=== PATIENT | female | born 1930 | race Caucasian/White ===

== ENCOUNTER 2016-12-08 18:05 | Inpatient (IN) | payer OTHER ==
[~2016-12-08] VITALS: Ht 157.5 cm; Wt 84.2 kg
[~2016-12-08 18:05] MED LIST: ALEVE220 MG PO; AMLODIPINE-BEN1 EAC2 PO; AMLODIPINE-BEN1 EAC3 PO; ASCORBIC ACID500 M3 PO; ASPIR-LOW81 MG PO; ASPIRIN81 M2 PO; AZOR 5/20 MG1 TABLET; AZOR 5/20 MG1 TABLET PO; Azor 10/20 mg PO; CYANOCOBALAM1000 MCG PO; GLUCOPHAGE XR750 MG; GLUCOPHAGE XR750 MG PO; Glucophage XR PO; LASIX20 MG PO; LOPRESSOR50 MG PO; LOTREL 5/201 CAPSULE PO; Lasix PO; Lotrel 5/20 PO; METOPROLOL SUC100 MG PO; OMEPRAZOLE20 MG PO; PRAVACHOL20 MG PO; PRAVACHOL80 MG PO; PRAVASTATIN SOD40 MG PO; Relafen PO; TOPROL XL100 MG PO; VITAMIN B PO; VITAMIN B12-FO1 EACH PO; VITAMIN C500 M1 PO; VITAMIN D1000 INTUN PO; VITAMIN D400 UNI1 PO; VITAMIN D5000 INTUN PO; Zocor PO; celeXA PO
[2016-12-08 23:03] LABS: HEMATOCRIT 38.8 % (36.0-46.0); MCH 29.7 PG (29.0-34.0); MCHC 33.8 G/DL (30.0-36.0); MEAN PLAT.VOLUME 10.1 uM^3 (9.5-12.4); PLATELET COUNT 281 K/uL (156-360); RBC DIS.WIDTH-CV 13.2 % (11.8-14.6); RBC DIS.WIDTH-SD 41.3 % (39-53); RED BLOOD COUNT 4.41 M/uL (3.80-5.20); WHITE BLOOD COUNT 9.7 K/uL (4.1-10.2)
[2016-12-08 23:20] LABS: INTER. NORMALIZED RATIO 1.1; PROTHROMBIN TIME 10.8 (9.2-11.2); PTT 29.3 (25-32)
[2016-12-08 23:29] LABS: TROP-I INTERPRETATION NEGATIVE; TROPONIN-I 0.01 ng/mL (0.0-0.30)
[2016-12-08 23:36] LABS: POTASSIUM ND MEQ/L (3.7-5.4)
[2016-12-08 23:43] LABS: CHLORIDE 106 mEq/L (99-109); SODIUM 143 mEq/L (136-147)
[2016-12-08 23:45] LABS: GLUCOSE 96 mg/dL (70-99)
[2016-12-08 23:46] LABS: ANION GAP 13 MEQ/L (2-14)
[2016-12-08 23:48] LABS: GFR ESTIMATE (CALCULATED) 41 mL/min/
[2016-12-08 23:49] LABS: UREA NITROGEN (BUN) 25 mg/dL (9-23)
[2016-12-09] VITALS (9 sets, daily range): BP systolic 151–189; BP diastolic 50–107
[2016-12-09 00:36] LABS: POTASSIUM 3.9 mEq/L (3.7-5.4)
[2016-12-09] MEDS ORDERED: VITAMIN B-122000 MC1 PO (01:00)
[2016-12-09] MEDS ORDERED: PROAIR HFA8.5 GM IH (01:01)
[2016-12-09] MEDS ORDERED: CLOPIDOGREL75 MG PO (01:01)
[2016-12-09] MEDS ORDERED: SYSTANE GEL EYE10 ML RIGHT EYE (01:02)
[2016-12-09 01:37] LABS: BASE EXCESS 0.6 mEq/L (-3 to +3); CARBOXY HGB 1.6 % (0-5); COMMENTS - BLOOD GASES C+A+; DEVICE NIV; FI02 30 %; METHEMOGLOBIN 1.3 % (0-1.5); MODE SPONT; PCO2 44 mm Hg (35-45); PO2 107 mm Hg (80-100); SITE LR; TOTAL RESP RATE 24 resp/min; pH 7.38 (7.35-7.45)
[2016-12-09 01:38] LABS: PEEP 5 CM/H20; PRES. SUPPORT 10 CM/H2O
[2016-12-09 08:57] LABS: BASE EXCESS 2.8 mEq/L (-3 to +3); BICARBONATE 28.5 mEq/L (22-26); CARBOXY HGB 1.5 % (0-5); METHEMOGLOBIN 0.7 % (0-1.5); PCO2 47 mm Hg (35-45); pH 7.39 (7.35-7.45)
[2016-12-09 08:58] LABS: COMMENTS - BLOOD GASES A+C+; DEVICE NC; O2 FLOW 2 L/MIN; PO2 75 mm Hg (80-100); SITE RR
[2016-12-09 10:34] LABS: ADD MIUA? YES; BILIRUBIN NEGATIVE; BLOOD SMALL; COLOR STRAW ((YELLOW)); GLUCOSE (STRIP) NEGATIVE; KETONES NEGATIVE; LEUKOCYTES TRACE; NITRITE POSITIVE; PROTEIN (STRIP) NEGATIVE; SPECIFIC GRAVITY 1.006 (1.000-1.030); UROBILINOGEN 0.2 MG/DL (0.2-1.0)
[2016-12-09 10:42] LABS: BACTERIA RARE /HPF; EPITHELIAL CELLS RARE /HPF; MUCUS TRACE /LPF; RED BLOOD CELLS 0-5 /HPF (0-5); UCUL ADDED? NO
[2016-12-09 13:54] LABS: METH RESISTANT S AUREUS PCR NEGATIVE (NEGATIVE)
[2016-12-09 13:59] LABS: PROBE CHECK PASS; SPECIMEN PROCESSING CONTROL PASS
[2016-12-10] VITALS (12 sets, daily range): BP systolic 105–156; BP diastolic 37–85
[2016-12-10 10:22] LABS: HEMATOCRIT 35.3 % (36.0-46.0); MCH 29.8 PG (29.0-34.0); MCV 87.6 FL (83-99); MEAN PLAT.VOLUME 10.4 uM^3 (9.5-12.4); PLATELET COUNT 234 K/uL (156-360); RBC DIS.WIDTH-CV 12.9 % (11.8-14.6); RBC DIS.WIDTH-SD 40.7 % (39-53); RED BLOOD COUNT 4.03 M/uL (3.80-5.20); WHITE BLOOD COUNT 6.5 K/uL (4.1-10.2)
[2016-12-10 11:11] LABS: ANION GAP 14 MEQ/L (2-14); CHLORIDE 98 MEQ/L (99-109); GFR ESTIMATE (CALCULATED) 50 mL/min/; POTASSIUM 3.6 MEQ/L (3.7-5.4); SAMPLE HEMOLYSIS CHECK 0; SAMPLE ICTERIC CHECK 0; SAMPLE LIPEMIA CHECK 0; SODIUM 140 MEQ/L (136-147); UREA NITROGEN (BUN) 18 mg/dL (9-23)
[2016-12-10 11:12] LABS: GLUCOSE 161 mg/dL (70-99)
[2016-12-10 11:21] LABS: TROP-I INTERPRETATION NEGATIVE; TROPONIN-I 0.03 ng/mL (0.0-0.30)
[2016-12-11] VITALS (7 sets, daily range): BP systolic 123–163; BP diastolic 44–61
[2016-12-11 05:51] LABS: HEMATOCRIT 36.5 % (36.0-46.0); MCV 88.2 FL (83-99); MEAN PLAT.VOLUME 10.9 uM^3 (9.5-12.4); PLATELET COUNT 234 K/uL (156-360); RBC DIS.WIDTH-CV 13.3 % (11.8-14.6); RBC DIS.WIDTH-SD 42.5 % (39-53); RED BLOOD COUNT 4.14 M/uL (3.80-5.20); WHITE BLOOD COUNT 6.5 K/uL (4.1-10.2)
[2016-12-11 06:10] LABS: ANION GAP 10 MEQ/L (2-14); CHLORIDE 99 MEQ/L (99-109); GFR ESTIMATE (CALCULATED) 41 mL/min/; GLUCOSE 139 mg/dL (70-99); POTASSIUM 3.9 MEQ/L (3.7-5.4); SAMPLE HEMOLYSIS CHECK 0; SAMPLE ICTERIC CHECK 0; SAMPLE LIPEMIA CHECK 0; SODIUM 138 MEQ/L (136-147); UREA NITROGEN (BUN) 25 mg/dL (9-23)
[2016-12-11] MEDS ORDERED: FUROSEMIDE40 MG PO (14:36)
[2016-12-11] MEDS ORDERED: KEFLEX250 MG PO (14:36)
== END 2016-12-11 18:35 | disposition home health service (06) | DRG 189 ==
LOC: EME 18:05 → EDOF 12-09 04:59 → 4WEST 12-09 04:59
PROVIDERS: Emergency Medicine; Hospitalist; Internal Medicine
PROC: 5A09358 Assistance with Respiratory Ventilation, Less than 24 Consecutive Hours, Intermittent Positive Airway Pressure (ICD-10-PCS; principal; 2016-12-09)
DX: J96.01 Acute respiratory failure with hypoxia (principal); I50.33 Acute on chronic diastolic (congestive) heart failure; J18.9 Pneumonia, unspecified organism; N39.0 Urinary tract infection, site not specified; E11.9 Type 2 diabetes mellitus without complications; I27.2 Other secondary pulmonary hypertension; E87.6 Hypokalemia; I35.0 Nonrheumatic aortic (valve) stenosis; I05.0 Rheumatic mitral stenosis; E78.5 Hyperlipidemia, unspecified; I25.10 Atherosclerotic heart disease of native coronary artery without angina pectoris; Z91.041 Radiographic dye allergy status; Z88.6 Allergy status to analgesic agent; Z88.8 Allergy status to other drugs, medicaments and biological substances; H54.42 Blindness, left eye, normal vision right eye; Z95.5 Presence of coronary angioplasty implant and graft; Z87.891 Personal history of nicotine dependence; I11.0 Hypertensive heart disease with heart failure
CPT/HCPCS: 36600; 71010; 80048; 81003; 82803; 83605; 83880; 84484; 84999; 85027; 85610; 85730; 87040; 87641; 93005; 93306; 93970; 94002; 94640; 94640 76; 94799; 97530 GO; 99202; 99281; 99285; J0456; J0696; J1644; J1940; J7050

== ENCOUNTER 2017-04-01 16:02 | Inpatient (IN) | payer OTHER ==
[~2017-04-01] VITALS: Ht 157.5 cm; Wt 98.0 kg
[~2017-04-01 16:02] MED LIST changes: +CLOPIDOGREL75 MG PO; +FUROSEMIDE40 MG PO; +KEFLEX250 MG PO; +PROAIR HFA8.5 GM IH; +SYSTANE GEL EYE10 ML BOTH EYES; +VITAMIN B-122000 MC1 PO
[2017-04-01 16:12] LABS: BASE EXCESS -2.4 mEq/L (-3 to +3); CARBOXY HGB 1.8 % (0-5); COMMENTS - BLOOD GASES A+C+; PCO2 69 mm Hg (35-45); PO2 386 mm Hg (80-100); SITE LR
[2017-04-01 16:13] LABS: DEVICE MASK VENT 840; FI02 60 %; MODE SPONT; PEEP 5 CM/H20; PRES. SUPPORT 10 CM/H2O; TOTAL RESP RATE 28 resp/min
[2017-04-01 16:25] LABS: BASOPHIL COUNT 0.1 K/uL (0-0.1); EOSINOPHIL (%) 0.8 % (0-5); EOSINOPHIL COUNT 0.1 K/uL (0-0.3); HEMATOCRIT 38.9 % (36.0-46.0); IMMATURE GRANULOCYTE (%) 0.7 % (0.0-0.7); IMMATURE GRANULOCYTE COUNT 0.1 K/uL; INSTRUMENT ABS NEUTROPHIL CT 12.5 K/uL; LYMPHOCYTE COUNT 1.7 K/uL (1.0-2.8); MCH 30.2 PG (29.0-34.0); MCHC 32.6 G/DL (30.0-36.0); MCV 92.4 FL (83-99); MEAN PLAT.VOLUME 10.2 uM^3 (9.5-12.4); MONOCYTE (%) 4.1 % (3-12); MONOCYTE COUNT 0.6 K/uL (0-0.8); NEUTROPHIL (%) 83.1 % (45-76); NEUTROPHIL COUNT 12.5 K/uL (1.8-6.4); PLATELET COUNT 300 K/uL (156-360); RBC DIS.WIDTH-CV 12.8 % (11.8-14.6); RBC DIS.WIDTH-SD 43.3 % (39-53); RED BLOOD COUNT 4.21 M/uL (3.80-5.20)
[2017-04-01 16:35] LABS: CHLORIDE 107 mEq/L (99-109); POTASSIUM 4.9 mEq/L (3.7-5.4); SODIUM 141 mEq/L (136-147)
[2017-04-01 16:38] LABS: ANION GAP 11 MEQ/L (2-14)
[2017-04-01 16:40] LABS: GFR ESTIMATE (CALCULATED) 30 mL/min/; GLUCOSE 200 mg/dL (70-99)
[2017-04-01 16:41] LABS: UREA NITROGEN (BUN) 39 mg/dL (9-23)
[2017-04-01 16:47] LABS: TROP-I INTERPRETATION NEGATIVE; TROPONIN-I 0.01 ng/mL (0.0-0.30)
[2017-04-01 16:59] LABS: BASE EXCESS -1.4 mEq/L (-3 to +3); BICARBONATE 26.8 mEq/L (22-26); CARBOXY HGB 1.8 % (0-5); METHEMOGLOBIN 0.9 % (0-1.5)
[2017-04-01 17:00] LABS: COMMENTS - BLOOD GASES A+C+; DEVICE 840 MASK VENT; FI02 50 %; MODE SPONT; PCO2 61 mm Hg (35-45); PEEP 5 CM/H20; PO2 186 mm Hg (80-100); PRES. SUPPORT 12 CM/H2O; SITE LR; TOTAL RESP RATE 21 resp/min; pH 7.25 (7.35-7.45)
[2017-04-01 18:14] LABS: BASE EXCESS 0.3 mEq/L (-3 to +3); BICARBONATE 28.2 mEq/L (22-26); CARBOXY HGB 1.8 % (0-5); METHEMOGLOBIN 1.2 % (0-1.5); PCO2 60 mm Hg (35-45); PO2 153 mm Hg (80-100)
[2017-04-01 18:15] LABS: COMMENTS - BLOOD GASES A+C+; DEVICE HHFNC; FI02 50 %; O2 FLOW 60 L/MIN; SITE LR; TOTAL RESP RATE 28 resp/min; pH 7.28 (7.35-7.45)
[2017-04-01] MEDS ORDERED: FUROSEMIDE40 MG PO (19:23)
[2017-04-01] MEDS ORDERED: VITAMIN B-12500 MC5 SL (19:24)
[2017-04-01] MEDS ORDERED: GABAPENTIN300 MG PO (19:25)
[2017-04-01] MEDS ORDERED: LISINOPRIL20 MG PO (19:25)
[2017-04-01] MEDS ORDERED: VITAMIN D31000 UNIT PO (19:25)
[2017-04-01 21:47] VITALS: BP 207/98
[2017-04-01 22:00] VITALS: BP 207/98
[2017-04-01 23:00] VITALS: BP 186/59
[2017-04-01 23:28] LABS: METH RESISTANT S AUREUS PCR NEGATIVE (NEGATIVE)
[2017-04-01 23:29] LABS: PROBE CHECK PASS; SPECIMEN PROCESSING CONTROL PASS
[2017-04-02] VITALS (16 sets, daily range): BP systolic 125–204; BP diastolic 47–78
[2017-04-02 05:49] LABS: TROP-I INTERPRETATION NEGATIVE; TROPONIN-I 0.06 ng/mL (0.0-0.30)
[2017-04-02 13:01] LABS: TROP-I INTERPRETATION NEGATIVE; TROPONIN-I 0.05 ng/mL (0.0-0.30)
[2017-04-03 04:29] VITALS: BP 131/58
[2017-04-03 06:25] LABS: HEMATOCRIT 30.9 % (36.0-46.0); MCHC 33.7 G/DL (30.0-36.0); MEAN PLAT.VOLUME 10.5 uM^3 (9.5-12.4); PLATELET COUNT 220 K/uL (156-360); RBC DIS.WIDTH-CV 12.7 % (11.8-14.6); RBC DIS.WIDTH-SD 42.4 % (39-53); WHITE BLOOD COUNT 8.9 K/uL (4.1-10.2)
[2017-04-03 06:26] LABS: RED BLOOD COUNT 3.36 M/uL (3.80-5.20)
[2017-04-03 07:10] LABS: ANION GAP 11 MEQ/L (2-14); CHLORIDE 103 MEQ/L (99-109); GFR ESTIMATE (CALCULATED) 38 mL/min/; SAMPLE HEMOLYSIS CHECK 0; SAMPLE ICTERIC CHECK 0; SAMPLE LIPEMIA CHECK 0; SODIUM 142 MEQ/L (136-147); UREA NITROGEN (BUN) 38 mg/dL (9-23)
[2017-04-03 07:11] LABS: GLUCOSE 111 mg/dL (70-99); POTASSIUM 3.9 MEQ/L (3.7-5.4)
[2017-04-03 07:58] VITALS: BP 143/64
[2017-04-03 12:05] VITALS: BP 138/60
[2017-04-03 16:00] VITALS: BP 128/60
[2017-04-03 19:43] VITALS: BP 140/63
[2017-04-03 23:44] VITALS: BP 148/65
[2017-04-04 03:34] VITALS: BP 169/72
[2017-04-04 06:18] LABS: HEMATOCRIT 31.9 % (36.0-46.0); MCH 30.5 PG (29.0-34.0); MCHC 33.2 G/DL (30.0-36.0); MCV 91.9 FL (83-99); MEAN PLAT.VOLUME 10.4 uM^3 (9.5-12.4); PLATELET COUNT 214 K/uL (156-360); RBC DIS.WIDTH-CV 12.7 % (11.8-14.6); RBC DIS.WIDTH-SD 42.5 % (39-53); RED BLOOD COUNT 3.47 M/uL (3.80-5.20); WHITE BLOOD COUNT 6.3 K/uL (4.1-10.2)
[2017-04-04 06:45] LABS: ANION GAP 10 MEQ/L (2-14); CHLORIDE 102 MEQ/L (99-109); GFR ESTIMATE (CALCULATED) 32 mL/min/; GLUCOSE 104 mg/dL (70-99); POTASSIUM 4.2 MEQ/L (3.7-5.4); SAMPLE HEMOLYSIS CHECK 0; SAMPLE ICTERIC CHECK 0; SAMPLE LIPEMIA CHECK 0; SODIUM 141 MEQ/L (136-147); UREA NITROGEN (BUN) 40 mg/dL (9-23)
[2017-04-04 07:34] VITALS: BP 153/67
[2017-04-04 11:11] VITALS: BP 137/65
== END 2017-04-04 14:21 | disposition home health service (06) | DRG 189 ==
LOC: EME 16:02 → EDOF 20:38 → 4WEST 20:38 → 5SOUTH 04-02 21:59
PROVIDERS: Emergency Medicine; Hospitalist
PROC: 5A09357 Assistance with Respiratory Ventilation, Less than 24 Consecutive Hours, Continuous Positive Airway Pressure (ICD-10-PCS; principal; 2017-04-01)
DX: J96.01 Acute respiratory failure with hypoxia (principal); I50.33 Acute on chronic diastolic (congestive) heart failure; E87.2 Acidosis; E11.22 Type 2 diabetes mellitus with diabetic chronic kidney disease; I13.0 Hypertensive heart and chronic kidney disease with heart failure and stage 1 through stage 4 chronic kidney disease, or unspecified chronic kidney disease; I25.10 Atherosclerotic heart disease of native coronary artery without angina pectoris; E78.5 Hyperlipidemia, unspecified; N18.3 Chronic kidney disease, stage 3 (moderate); Z68.39 Body mass index [BMI] 39.0-39.9, adult; Z95.2 Presence of prosthetic heart valve; Z90.49 Acquired absence of other specified parts of digestive tract; Z95.1 Presence of aortocoronary bypass graft; Z87.891 Personal history of nicotine dependence; I08.0 Rheumatic disorders of both mitral and aortic valves; J98.11 Atelectasis; K21.9 Gastro-esophageal reflux disease without esophagitis; Z86.73 Personal history of transient ischemic attack (TIA), and cerebral infarction without residual deficits; Z93.3 Colostomy status; Z80.0 Family history of malignant neoplasm of digestive organs; Z82.49 Family history of ischemic heart disease and other diseases of the circulatory system
CPT/HCPCS: 36415; 36600; 71010; 80048; 80053; 80061; 82043; 82570; 82803; 83036; 83735; 83880; 84484; 85025; 85027; 87641; 93005; 94002; 94640; 94640 76; 94760; 94799; 99202; 99281; 99285; J1644; J1940

== ENCOUNTER 2017-04-10 09:16 | Inpatient (IN) | payer OTHER ==
[2017-04-10] VITALS (9 sets, daily range): BP systolic 102–183; BP diastolic 44–83
[~2017-04-10] VITALS: Ht 160 cm; Wt 88.4 kg
[~2017-04-10 09:16] MED LIST changes: +GABAPENTIN300 MG PO; +LISINOPRIL20 MG PO; +VITAMIN B-12500 MC5 SL; +VITAMIN D31000 UNIT PO
[2017-04-10 09:54] LABS: CREATININE 1.6 mg/dL (0.6-1.3); POTASSIUM 4.9 mEq/L (3.7-5.4)
[2017-04-10 09:57] LABS: HEMATOCRIT 35.7 % (36.0-46.0); MCH 30.4 PG (29.0-34.0); MCHC 32.5 G/DL (30.0-36.0); MCV 93.5 FL (83-99); MEAN PLAT.VOLUME 10.5 uM^3 (9.5-12.4); PLATELET COUNT 303 K/uL (156-360); RBC DIS.WIDTH-CV 12.6 % (11.8-14.6); RBC DIS.WIDTH-SD 43.2 % (39-53); RED BLOOD COUNT 3.82 M/uL (3.80-5.20); WHITE BLOOD COUNT 13.7 K/uL (4.1-10.2)
[2017-04-10 10:09] LABS: BASE EXCESS -1.3 mEq/L (-3 to +3); BICARBONATE 28.3 mEq/L (22-26); CARBOXY HGB 1.9 % (0-5)
[2017-04-10 10:10] LABS: COMMENTS - BLOOD GASES A+C+; DEVICE 840 PB MASK; FI02 60 %; MODE SPONT NIV; PCO2 74 mm Hg (35-45); PEEP 8 CM/H20; PO2 246 mm Hg (80-100); PRES. SUPPORT 12 CM/H2O; SITE RR; TOTAL RESP RATE 24 resp/min; pH 7.19 (7.35-7.45)
[2017-04-10 10:14] LABS: TROP-I INTERPRETATION NEGATIVE; TROPONIN-I < 0.01 ng/mL (0.0-0.30)
[2017-04-10 10:17] LABS: CHLORIDE 103 mEq/L (99-109); POTASSIUM 5.1 mEq/L (3.7-5.4); SODIUM 141 mEq/L (136-147)
[2017-04-10 10:18] LABS: GLUCOSE 138 mg/dL (70-99)
[2017-04-10 10:20] LABS: ANION GAP 12 MEQ/L (2-14)
[2017-04-10 10:22] LABS: GFR ESTIMATE (CALCULATED) 30 mL/min/
[2017-04-10 10:23] LABS: UREA NITROGEN (BUN) 55 mg/dL (9-23)
[2017-04-10 10:25] LABS: CREATINE KINASE 211 IU/L (1-294)
[2017-04-10 12:10] LABS: BASE EXCESS -0.3 mEq/L (-3 to +3); BICARBONATE 27.3 mEq/L (22-26); CARBOXY HGB 1.9 % (0-5); COMMENTS - BLOOD GASES A+C+; DEVICE NC; O2 FLOW 2 L/MIN; PCO2 58 mm Hg (35-45); PO2 68 mm Hg (80-100); SITE RR; TOTAL RESP RATE 28 resp/min; pH 7.28 (7.35-7.45)
[2017-04-10] MEDS ORDERED: VITAMIN D32000 UNI1 PO (14:02)
[2017-04-10] MEDS ORDERED: VITAMIN B-121000 MC1 SL (14:02)
[2017-04-10 16:37] LABS: METH RESISTANT S AUREUS PCR NEGATIVE (NEGATIVE)
[2017-04-10 16:38] LABS: PROBE CHECK PASS; SPECIMEN PROCESSING CONTROL PASS
[2017-04-10 18:19] LABS: MAGNESIUM 2.7 mg/dL (1.3-2.7)
[2017-04-10 23:51] LABS: ADD MIUA? YES; BILIRUBIN NEGATIVE; BLOOD MODERATE; COLOR YELLOW ((YELLOW)); GLUCOSE (STRIP) NEGATIVE; KETONES NEGATIVE; LEUKOCYTES LARGE; NITRITE POSITIVE; PROTEIN (STRIP) NEGATIVE; SPECIFIC GRAVITY 1.008 (1.000-1.030); UROBILINOGEN 0.2 MG/DL (0.2-1.0)
[2017-04-11] VITALS (16 sets, daily range): BP systolic 100–183; BP diastolic 22–104
[2017-04-11 00:17] LABS: UCUL ADDED? YES; WHITE BLOOD CELLS TNTC /HPF (0-5)
[2017-04-11 00:34] LABS: POINT-OF-CARE METER ID UU13113748
[2017-04-11 05:37] LABS: POINT-OF-CARE METER ID UU13113748
[2017-04-11 06:44] LABS: ANION GAP 11 MEQ/L (2-14); CHLORIDE 104 MEQ/L (99-109); GFR ESTIMATE (CALCULATED) 30 mL/min/; GLUCOSE 137 mg/dL (70-99); MAGNESIUM 2.6 mg/dl (1.3-2.7); POTASSIUM 5.6 MEQ/L (3.7-5.4); SAMPLE HEMOLYSIS CHECK 0; SAMPLE ICTERIC CHECK 0; SAMPLE LIPEMIA CHECK 0; SODIUM 139 MEQ/L (136-147); UREA NITROGEN (BUN) 66 mg/dL (9-23)
[2017-04-11 07:46] LABS: EOSINOPHIL (%) 0 % (0-5); HEMATOCRIT 28.8 % (36.0-46.0); IMMATURE GRANULOCYTE (%) 0.4 % (0.0-0.7); IMMATURE GRANULOCYTE COUNT 0.1 K/uL; LYMPHOCYTE COUNT 0.5 K/uL (1.0-2.8); MCH 30.8 PG (29.0-34.0); MCHC 32.6 G/DL (30.0-36.0); MCV 94.4 FL (83-99); MEAN PLAT.VOLUME 10.2 uM^3 (9.5-12.4); MONOCYTE (%) 7.1 % (3-12); MONOCYTE COUNT 0.9 K/uL (0-0.8); NEUTROPHIL (%) 88.4 % (45-76); PLATELET COUNT 236 K/uL (156-360); RBC DIS.WIDTH-CV 12.9 % (11.8-14.6); RBC DIS.WIDTH-SD 44.4 % (39-53); RED BLOOD COUNT 3.05 M/uL (3.80-5.20); WHITE BLOOD COUNT 12.5 K/uL (4.1-10.2)
[2017-04-11 15:36] LABS: BASE EXCESS 6.9 mEq/L (-3 to +3); BICARBONATE 32.4 mEq/L (22-26); CARBOXY HGB 2.2 % (0-5); COMMENTS - BLOOD GASES AC+; DEVICE 840 VENTILATOR; FI02 30 %; METHEMOGLOBIN 1.5 % (0-1.5); MODE NIPPV; PCO2 50 mm Hg (35-45); PO2 71 mm Hg (80-100); SITE RR; pH 7.42 (7.35-7.45)
[2017-04-11 15:37] LABS: CONTINUOUS POS AIRWAY PRESSURE 8 cm H2O; PRES. SUPPORT 12 CM/H2O; TOTAL RESP RATE 36 resp/min
[2017-04-12 07:03] LABS: EOSINOPHIL (%) 0 % (0-5); HEMATOCRIT 33.4 % (36.0-46.0); IMMATURE GRANULOCYTE COUNT 0.1 K/uL; INSTRUMENT ABS NEUTROPHIL CT 9.8 K/uL; LYMPHOCYTE COUNT 0.9 K/uL (1.0-2.8); MCHC 32.3 G/DL (30.0-36.0); MEAN PLAT.VOLUME 10.7 uM^3 (9.5-12.4); MONOCYTE (%) 1.6 % (3-12); MONOCYTE COUNT 0.2 K/uL (0-0.8); NEUTROPHIL (%) 89.5 % (45-76); NEUTROPHIL COUNT 9.8 K/uL (1.8-6.4); PLATELET COUNT 297 K/uL (156-360); RBC DIS.WIDTH-CV 12.9 % (11.8-14.6); RBC DIS.WIDTH-SD 45.1 % (39-53); RED BLOOD COUNT 3.48 M/uL (3.80-5.20)
[2017-04-12 07:33] LABS: ANION GAP 15 MEQ/L (2-14); CHLORIDE 101 MEQ/L (99-109); GFR ESTIMATE (CALCULATED) 25 mL/min/; GLUCOSE 189 mg/dL (70-99); MAGNESIUM 2.6 mg/dl (1.3-2.7); POTASSIUM 5.9 MEQ/L (3.7-5.4); SAMPLE HEMOLYSIS CHECK 0; SAMPLE ICTERIC CHECK 0; SAMPLE LIPEMIA CHECK 0; SODIUM 140 MEQ/L (136-147); UREA NITROGEN (BUN) 75 mg/dL (9-23)
[2017-04-13 02:44] VITALS: BP 00/00
[2017-04-13 06:18] LABS: EOSINOPHIL (%) 0 % (0-5); HEMATOCRIT 31.6 % (36.0-46.0); IMMATURE GRANULOCYTE (%) 1.4 % (0.0-0.7); IMMATURE GRANULOCYTE COUNT 0.2 K/uL; INSTRUMENT ABS NEUTROPHIL CT 12.5 K/uL; LYMPHOCYTE COUNT 0.5 K/uL (1.0-2.8); MCH 31.4 PG (29.0-34.0); MCHC 31.6 G/DL (30.0-36.0); MCV 99.4 FL (83-99); MEAN PLAT.VOLUME 10.6 uM^3 (9.5-12.4); MONOCYTE (%) 10.6 % (3-12); MONOCYTE COUNT 1.6 K/uL (0-0.8); NEUTROPHIL (%) 84.9 % (45-76); NEUTROPHIL COUNT 12.5 K/uL (1.8-6.4); NRBC (%) 0.1 /100 WBC (0-0); PLATELET COUNT 261 K/uL (156-360); RBC DIS.WIDTH-CV 12.8 % (11.8-14.6); RBC DIS.WIDTH-SD 46.5 % (39-53); RED BLOOD COUNT 3.18 M/uL (3.80-5.20); WHITE BLOOD COUNT 14.8 K/uL (4.1-10.2)
[2017-04-13 06:40] LABS: ANION GAP 11 MEQ/L (2-14); CHLORIDE 104 MEQ/L (99-109); GFR ESTIMATE (CALCULATED) 24 mL/min/; GLUCOSE 154 mg/dL (70-99); MAGNESIUM 2.7 mg/dl (1.3-2.7); POTASSIUM 5.9 MEQ/L (3.7-5.4); SAMPLE HEMOLYSIS CHECK 0; SAMPLE ICTERIC CHECK 0; SAMPLE LIPEMIA CHECK 0; SODIUM 143 MEQ/L (136-147); UREA NITROGEN (BUN) 89 mg/dL (9-23)
== END 2017-04-14 04:12 | DRG 190 ==
LOC: EME → EDBD 09:16 → EME 09:16 → 4WEST 12:37 → 5EAST 12:37 → EDOF 12:37 → 4WEST 15:00 → 5EAST 04-11 21:45
PROVIDERS: Emergency Medicine; Internal Medicine; Internal Medicine Nephrology
DX: J44.1 Chronic obstructive pulmonary disease with (acute) exacerbation (principal); J96.21 Acute and chronic respiratory failure with hypoxia; I50.33 Acute on chronic diastolic (congestive) heart failure; J96.22 Acute and chronic respiratory failure with hypercapnia; I13.0 Hypertensive heart and chronic kidney disease with heart failure and stage 1 through stage 4 chronic kidney disease, or unspecified chronic kidney disease; G47.33 Obstructive sleep apnea (adult) (pediatric); E87.2 Acidosis; I25.10 Atherosclerotic heart disease of native coronary artery without angina pectoris; I48.2 Chronic atrial fibrillation; E78.5 Hyperlipidemia, unspecified; N18.3 Chronic kidney disease, stage 3 (moderate); I27.2 Other secondary pulmonary hypertension; E87.70 Fluid overload, unspecified; I34.2 Nonrheumatic mitral (valve) stenosis; N17.9 Acute kidney failure, unspecified; I35.0 Nonrheumatic aortic (valve) stenosis; K21.9 Gastro-esophageal reflux disease without esophagitis; E87.5 Hyperkalemia; Z51.5 Encounter for palliative care; Z66 Do not resuscitate; E11.22 Type 2 diabetes mellitus with diabetic chronic kidney disease; Z99.81 Dependence on supplemental oxygen; Z95.2 Presence of prosthetic heart valve; Z95.5 Presence of coronary angioplasty implant and graft; Z86.73 Personal history of transient ischemic attack (TIA), and cerebral infarction without residual deficits; Z91.041 Radiographic dye allergy status; Z79.84 Long term (current) use of oral hypoglycemic drugs; Z88.6 Allergy status to analgesic agent; Z87.891 Personal history of nicotine dependence; Z60.2 Problems related to living alone; Z82.49 Family history of ischemic heart disease and other diseases of the circulatory system; Z80.0 Family history of malignant neoplasm of digestive organs
CPT/HCPCS: 36600; 70450; 71010; 80047; 80048; 81003; 82550; 82803; 82948; 83735; 84100; 84484; 85025; 85027; 87077; 87086; 87186; 87641; 93005; 94002; 94003; 94640; 94640 76; 94799; 99202; 99281; 99285; J1630; J1644; J1815; J1940; J2060; J2270; J2930; J3475; J7030; S0028